=== PATIENT | male | born 1995 | race African-American/Black ===

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

== ENCOUNTER 2018-10-11 08:32 | Emergency (ER) | payer OTHER ==
[2018-10-11 08:46] VITALS: BP 117/66; PULSE 53; TEMP 98.1; BMI 23.0
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
== END 2018-10-11 10:01 | disposition home or self-care (01) ==
LOC: JERFT 08:32
DX: S90.412A Abrasion, left great toe, initial encounter (principal); S90.415A Abrasion, left lesser toe(s), initial encounter; X50.1XXA Overexertion from prolonged static or awkward postures, initial encounter; Y93.89 Activity, other specified; Y92.480 Sidewalk as the place of occurrence of the external cause; Y99.8 Other external cause status
CPT/HCPCS: 73630-TC-LT; 99281-25

== ENCOUNTER 2024-08-28 22:21 | Emergency (ER) | payer OTHER ==
[2024-08-28 22:28] VITALS: BP 134/84; PULSE 98; RESP 18; TEMP 99.7; BMI 18.3
== END 2024-08-28 23:29 | disposition home or self-care (01) ==
LOC: JER 22:21
DX: R07.89 Other chest pain (principal); B34.9 Viral infection, unspecified; R05.9 Cough, unspecified
CPT/HCPCS: 93005; 93010; 99283-25